=== PATIENT | male | born 1995 | race Caucasian/White ===

== ENCOUNTER 2023-02-20 10:38 | Emergency (ER) | payer OTHER ==
[2023-02-20 10:43] VITALS: BP 119/77; PULSE 63; RESP 18; TEMP 98.1; BMI 26.4
[2023-02-20] MEDS ORDERED: SODIUM CHLORIDE 1,000 ML IV STA (11:03)
[2023-02-20] MEDS ORDERED: NAPROXEN 500 MG TABLET PO ONE (11:13)
[2023-02-20] MEDS ORDERED: NAPROXEN 500 MG TABLET ONE (11:21)
[2023-02-20] MEDS ORDERED: ALBUTEROL SO4 2.5/IPRATROPIUM 0.5 INH SOL 3 ML VIAL.NEB. NEB ONE ×2 (11:28→11:51)
[2023-02-20 11:49] LABS: BASO % 0.8 % (0-2.0); EOS % 1.3 % (0-4.5); HEMATOCRIT 48.2 % (35.4-49); HEMOGLOBIN 16.4 GM/dL (11.7-16.9); LYMPH % 34.2 % (8-40); MCH 27.3 pg (25.7-33.7); MEAN CELL VOLUME 80.1 fl (80-96); MEAN PLT VOLUME 7.7 fl (7.5-11.1); MONO % 9.1 % (3.8-10.2); NEUT % 54.6 % (42.8-82.8); PLATELET COUNT 306 10^3/uL (134-434); RBC 6.01 M/mm3 (4.00-5.60); RDW 13.2 % (11.9-15.9); WHITE BLOOD COUNT 7.3 K/mm3 (4.0-10.0)
[2023-02-20 11:56] LABS: INR 1.11 (0.83-1.09); PROTHROMBIN TIME (PATIENT) 12.9 SEC (9.7-13.0)
[2023-02-20 12:13] LABS: CHLORIDE 104 mmol/L (98-107); POTASSIUM 4.1 mmol/L (3.5-5.1); SODIUM 137 mmol/L (136-145)
[2023-02-20 12:16] LABS: CALCIUM 9.3 mg/dL (8.5-10.1)
[2023-02-20 12:17] LABS: ALBUMIN 4.3 g/dl (3.4-5.0); ANION GAP 4 MMOL/L (8-16); BLOOD UREA NITROGEN 11.5 mg/dL (7-18); CO2 29 mmol/L (21-32); GLUCOSE,RANDOM 85 mg/dL (74-106)
[2023-02-20 12:19] LABS: SGOT/AST 32 U/L (15-37); SGPT/ALT 81 U/L (13-61)
[2023-02-20 12:21] LABS: BILIRUBIN,TOTAL 0.6 mg/dL (0.2-1); TOT PROT 8.2 g/dl (6.4-8.2)
[2023-02-20 12:22] LABS: ALK PHOS 92 U/L (45-117)
== END 2023-02-20 13:00 | disposition home or self-care (01) ==
LOC: JER 10:38
PROC: 3E0F7GC Introduction of Other Therapeutic Substance into Respiratory Tract, Via Natural or Artificial Opening (ICD-10-PCS; principal; 2023-02-20)
PROC: 3E0337Z Introduction of Electrolytic and Water Balance Substance into Peripheral Vein, Percutaneous Approach (ICD-10-PCS; 2023-02-20)
DX: R07.89 Other chest pain (principal); M94.0 Chondrocostal junction syndrome [Tietze]; Z20.822 Contact with and (suspected) exposure to COVID-19
CPT/HCPCS: 0241U-QW; 36415; 71046-TC-FY; 80053; 82550; 82553; 83735; 84484; 85025; 85610; 85730; 93005; 93010; 99285-25